=== PATIENT | female | born 1995 | race Caucasian/White ===

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

== ENCOUNTER 2017-02-22 17:43 | Emergency (ER) | payer SELFPAY ==
--- NOTE | 2017-02-22 18:42 | ER Document Report ---
ED Medical Screen (RME) - General Chief Complaint: Pelvic Pain Stated Complaint: PELVIC PAIN Time Seen by Provider: 02/22/17 18:36 Notes: Pelvic pain, onset last night, positive white mucousy discharge. Some dysuria. Last menstrual period either started 1 or 2 weeks ago by history. Will obtain a dirty urine catch for PCR testing, and clean-catch for urinalysis and hCG. I have greeted and performed a rapid initial assessment of this patient. A comprehensive ED assessment and evaluation of the patient, analysis of test results and completion of the medical decision making process will be conducted by additional ED providers. TRAVEL OUTSIDE OF THE [place] IN LAST 30 DAYS: No - Related Data Allergies/Adverse Reactions: NSAIDS (Non-Steroidal Anti-Inflamma Allergy (Verified 08/09/16 11:55) Penicillins Allergy (Verified 08/09/16 11:55) Home Medications: Current Home Medications No Home Medications 02/22/17 [History] Past Medical History - Social History Chew tobacco use (# tins/day): No Frequency of alcohol use: None Drug Abuse: None Renal/ Medical History: Denies: Hx Peritoneal Dialysis - Immunizations Hx Diphtheria, Pertussis, Tetanus Vaccination: Yes Physical Exam - Vital signs Vitals: Temp Pulse Resp BP Pulse Ox 98.8 F 92 H 14 117/66 100 02/22/17 18:09 02/22/17 18:09 02/22/17 18:09 02/22/17 18:09 02/22/17 18:09 Course - Vital Signs Vital signs: Temp Pulse Resp BP Pulse Ox 98.8 F 92 H 14 117/66 100 02/22/17 18:09 02/22/17 18:09 02/22/17 18:09 02/22/17 18:09 02/22/17 18:09
[2017-02-22 19:24] LABS: APPEARANCE,URINE CLOUDY; BILIRUBIN,URINE NEGATIVE (NEGATIVE); COLOR,URINE YELLOW; GLUCOSE, URINE NEGATIVE (NEGATIVE); KETONES,URINE NEGATIVE (NEGATIVE); LEUKOCYTE ESTERASE,URINE LARGE (NEGATIVE); NITRITE,URINE POSITIVE (NEGATIVE); PROTEIN,URINE 100 mg/dL (NEGATIVE); URINE SPECIFIC GRAVITY 1.019
[2017-02-22 20:41] LABS: CHLAM PCR NOT DETECTED (NOT DETECT); GON PCR NOT DETECTED (NOT DETECT)
[2017-02-22] MEDS ORDERED: CEPHALEXIN 500 MG CAPSULE PO ONE (21:04)
[2017-02-22] MEDS ORDERED: ACETAMINOPHEN 325 MG TABLET PO ONE (21:06)
--- NOTE | 2017-02-22 21:07 | ER Document Report ---
ED General - General Chief Complaint: Pelvic Pain Stated Complaint: PELVIC PAIN Time Seen by Provider: 02/22/17 18:36 Notes: Patient is a 21-year-old female who presents with 24 hours of pelvic pain as well as suprapubic abdominal pain. Patient reports associated dysuria and whitish vaginal discharge. Denies a history of similar symptoms in the past. She does describe the pain as a dull, aching, constant pain. Nothing improves or worsens that pain. She denies any associated fever, vomiting, diarrhea, vaginal bleeding, chest pain or shortness of breath. She has not seen her primary doctor regarding today's concerns. TRAVEL OUTSIDE OF THE [place] IN LAST 30 DAYS: No - Related Data Allergies/Adverse Reactions: NSAIDS (Non-Steroidal Anti-Inflamma Allergy (Verified 08/09/16 11:55) Penicillins Allergy (Verified 08/09/16 11:55) Past Medical History - General Information source: Patient - Social History Smoking Status: Current Every Day Smoker Chew tobacco use (# tins/day): No Frequency of alcohol use: None Drug Abuse: None Lives with: Spouse/Significant other Family History: Reviewed & Not Pertinent Patient has suicidal ideation: No Patient has homicidal ideation: No Renal/ Medical History: Denies: Hx Peritoneal Dialysis - Immunizations Hx Diphtheria, Pertussis, Tetanus Vaccination: Yes Review of Systems - Review of Systems Notes: Constitutional: Negative for fever. HENT: Negative for sore throat. Eyes: Negative for visual changes. Cardiovascular: Negative for chest pain. Respiratory: Negative for shortness of breath. Gastrointestinal: Positive for abdominal pain Genitourinary: Positive for dysuria. Musculoskeletal: Negative for back pain. Skin: Negative for rash. Neurological: Negative for headaches, weakness or numbness. 10 point ROS negative except as marked above and in HPI. Physical Exam - Vital signs Vitals: Temp Pulse Resp BP Pulse Ox 98.8 F 92 H 14 117/66 100 02/22/17 18:09 02/22/17 18:09 02/22/17 18:09 02/22/17 18:09 02/22/17 18:09 Interpretation: Normal Notes: PHYSICAL EXAMINATION: GENERAL: Well-appearing, well-nourished and in no acute distress. HEAD: Atraumatic, normocephalic. EYES: Pupils equal round and reactive to light, extraocular movements intact, sclera anicteric, conjunctiva are normal. ENT: nares patent, oropharynx clear without exudates. Moist mucous membranes. NECK: Normal range of motion, supple without lymphadenopathy LUNGS: Breath sounds clear to auscultation bilaterally and equal. No wheezes rales or rhonchi. HEART: Regular rate and rhythm without murmurs ABDOMEN: Soft, mild suprapubic tenderness. Otherwise no localized tenderness. No rebound or guarding. Bilateral CVA tenderness. EXTREMITIES: Normal range of motion, no pitting or edema. No cyanosis. NEUROLOGICAL: No focal neurological deficits. Moves all extremities spontaneously and on command. PSYCH: Normal mood, normal affect. SKIN: Warm, Dry, normal turgor, no rashes or lesions noted. Course - Re-evaluation Re-evalutation: 02/22/17 21:03 Presentation is most consistent with acute pyelonephritis. Laboratories do demonstrate a large amount of white blood cells in the urine as well as bacteria. CVA tenderness is present on exam bilaterally. I do not suspect an acute appendicitis, biliary pathology, pancreatitis, intra-abdominal abscess, or tubo-ovarian abscess based on history and examination. Vitals otherwise within normal limits without tachycardia, fever, or hypotension. Patient is very well in appearance, sleeping initially when I walk in the room but wakes easily and is very polite and conversant during examination. Patient is able to tolerate oral intake without difficulty. Will be discharged home on 7 day course of cephalexin. A urine culture has been sent. At this time will discharge with return precautions and follow-up recommendations. Verbal discharge instructions given a the bedside and opportunity for questions given. Medication warnings reviewed. Patient is in agreement with this plan and has verbalized understanding of return precautions and the need for primary care follow-up in the next 24-72 hours. - Vital Signs Vital signs: Temp Pulse Resp BP Pulse Ox 98.1 F 88 16 115/68 100 02/22/17 21:31 02/22/17 21:31 02/22/17 21:31 02/22/17 21:31 02/22/17 21:31 - Laboratory Laboratory results interpreted by me: 02/22/17 18:53 Urine Protein 100 H Urine Blood MODERATE H Urine Nitrite POSITIVE H Urine Urobilinogen 2.0 H Ur Leukocyte Esterase LARGE H Discharge - Discharge Clinical Impression: Pyelonephritis, Pelvic pain Condition: Good Disposition: HOME, SELF-CARE Additional Instructions: You have been diagnosed with a condition called pyelonephritis which is an infection involving your kidneys and bladder. You have been given a dose of antibiotics here in the emergency department to help begin to treat this infection. Your also being sent home on antibiotics. Please start taking these later on today when you fill the prescription. Complete the course even if you feel better. Please return if you have persistent vomiting, pass out, have worsening pain, become unable to tolerate fluids, or have any other symptoms that are concerning to you. Please follow-up with your primary care physician in the next 24-48 hours. Prescriptions: Cephalexin Monohydrate [Keflex 500 mg Capsule] 500 mg PO QID #28 capsule Referrals: TRACE GASTELUM MD [Primary Care Provider] - Follow up as needed
[2017-02-22 21:33] VITALS: BP 115/68
== END 2017-02-22 21:31 | disposition home or self-care (01) ==
LOC: ER 17:43
DX: N12 Tubulo-interstitial nephritis, not specified as acute or chronic (principal); R10.2 Pelvic and perineal pain; R30.0 Dysuria; N89.8 Other specified noninflammatory disorders of vagina; F17.200 Nicotine dependence, unspecified, uncomplicated; Z88.8 Allergy status to other drugs, medicaments and biological substances; Z88.0 Allergy status to penicillin
CPT/HCPCS: 36415; 81001; 81025; 87086; 87088; 87186; 87491; 87591; 99284

== ENCOUNTER 2017-02-25 18:57 | Emergency (ER) | payer SELFPAY ==
--- NOTE | 2017-02-25 19:22 | ER Document Report ---
HPI - HPI Patient complains to provider of: left flank pain Onset: Other - 02-22 Pain Level: 5 Context: 21-year-old female was diagnosed with pyelonephritis on February 22. She was unable to fill her Keflex because she does not have any money. The urine culture shows greater than 100,000 maritza of E. coli which is sensitive to Rocephin and cephalexin. She comes in crying with left flank pain tonight. Low -grade fever and one episode of vomiting today. Temperature is 99.8 and pulse is 107 at this time. Associated Symptoms: None Exacerbated by: Denies Relieved by: Denies Similar symptoms previously: Yes Recently seen / treated by doctor: Yes - ROS ROS below otherwise negative: Yes Systems Reviewed and Negative: Yes All other systems reviewed and negative - REPRODUCTIVE LMP: 02/08/17 Reproductive: DENIES: : Past Medical History - General Information source: Patient - Social History Smoking Status: Never Smoker Frequency of alcohol use: None Drug Abuse: None Lives with: Spouse/Significant other - fiance and his mom Family History: Reviewed & Not Pertinent - Medical History Medical History: Negative Renal/ Medical History: Denies: Hx Peritoneal Dialysis Surgical Hx: Negative - Immunizations Hx Diphtheria, Pertussis, Tetanus Vaccination: Yes Vertical Provider Document - CONSTITUTIONAL Agree With Documented VS: Yes Exam Limitations: No Limitations - INFECTION CONTROL TRAVEL OUTSIDE OF THE [place] IN LAST 30 DAYS: No - HEENT HEENT: Normocephalic - NECK Neck: Supple - RESPIRATORY Respiratory: Breath Sounds Normal, No Respiratory Distress O2 Sat by Pulse Oximetry: 100 - CARDIOVASCULAR Cardiovascular: Regular Rate, Regular Rhythm - GI/ABDOMEN Gastrointestinal: Abdomen Soft, Abdomen Tender - minimal suprapubic, Abdominal Mass - BACK Back: Normal Inspection Notes: tender without CVAT right low back into the SI joint - MUSCULOSKELETAL/EXTREMETIES Musculoskeletal/Extremeties: MK BERMUEDZ - NEURO Level of Consciousness: Awake, Alert, Appropriate Motor/Sensory: No Motor Deficit, No Sensory Deficit - DERM Integumentary: Warm, Dry, No Rash Course - Re-evaluation Re-evalutation: 02/25/17 19:32 Patient states she is allergic to aspirin and penicillin but she can take ibuprofen so I will give her Toradol 30 mg IV. urine culture on 02-22, e coli sensitve to rocephin. pt states she did not fill the antibiotic because she did not have the money to do so. test negative on 02-2202/25/17 19:34 02/25/17 20:23 Repeat urine today shows 1+ bacteria later than 182 WBCs and 22 RBCs. I am assuming it is the same bacteria that was on the urinalysis from February 22. Patient states she will try to get the money from her parents to get the antibiotic tomorrow. 02/25/17 20:45 Patient feels much better, ready to call for a ride home. - Vital Signs Vital signs: Temp Pulse Resp BP Pulse Ox 99.8 F 107 H 16 131/68 H 100 02/25/17 19:04 02/25/17 19:04 02/25/17 19:04 02/25/17 19:04 02/25/17 19:04 Discharge - Discharge Clinical Impression: Flank pain Urinary tract infection Qualifiers: Urinary tract infection type: site unspecified Hematuria presence: without hematuria Qualified Code(s): N39.0 - Urinary tract infection, site not specified Condition: Good Disposition: HOME, SELF-CARE Instructions: Acetaminophen, Cephalexin ([facility]), Rocephin ([facility]), Toradol Injection ([facility]), Urinary Tract Infection ([facility]) Additional Instructions: fill your antibiotics tomorrow, take the keflex 500mg four times per day as prescribed on 02-22 Drink plenty of fluids warm compress tylenol for pain Return to the emergency room for any fever chills vomiting Referrals: TRACE GASTELUM MD [Primary Care Provider] - Follow up as needed
[2017-02-25] MEDS ORDERED: CEFTRIAXONE 1 GM/D5W RTU 1 GM/50 ML RTUPB IV ONE (19:27)
[2017-02-25] MEDS ORDERED: NORMAL SALINE 1000 ML 1,000 ML IV ONE (19:27)
[2017-02-25] MEDS ORDERED: ACETAMINOPHEN 325 MG TABLET PO ONE (19:28)
[2017-02-25] MEDS ORDERED: ONDANSETRON HCL INJ/PF 4 MG/2 ML SDV IV ONE (19:28)
[2017-02-25] MEDS ORDERED: KETOROLAC TROMETHAMINE INJ/PF 30 MG/1 ML SDV IV ONE (19:32)
[2017-02-25 19:39] LABS: APPEARANCE,URINE CLOUDY; BILIRUBIN,URINE NEGATIVE (NEGATIVE); COLOR,URINE YELLOW; GLUCOSE, URINE NEGATIVE (NEGATIVE); KETONES,URINE NEGATIVE (NEGATIVE); LEUKOCYTE ESTERASE,URINE LARGE (NEGATIVE); NITRITE,URINE NEGATIVE (NEGATIVE); PROTEIN,URINE 100 mg/dL (NEGATIVE); URINE SPECIFIC GRAVITY 1.011; UROBILINOGEN,URINE NEGATIVE mg/dL (<2.0)
[2017-02-25 20:57] VITALS: BP 104/54
== END 2017-02-25 20:59 | disposition home or self-care (01) ==
LOC: ER 18:57
DX: N12 Tubulo-interstitial nephritis, not specified as acute or chronic (principal); T36.1X6A Underdosing of cephalosporins and other beta-lactam antibiotics, initial encounter; Z91.120 Patient's intentional underdosing of medication regimen due to financial hardship; Z91.14 Patient's other noncompliance with medication regimen; Z88.0 Allergy status to penicillin; Z88.6 Allergy status to analgesic agent
CPT/HCPCS: 99283; 96375; 96365; 81001; J1885; J2405; J7030; J0696